=== PATIENT | male | born 1960 | race Caucasian/White ===

== ENCOUNTER 2023-02-03 09:04 | Inpatient (IN) ==
[2023-02-03] MEDS ORDERED: Albuterol/Ipratropium NEB.SOL (2.5/0.5 MG) 3 ML NEB.SOLN INH ONE (09:47)
[2023-02-03 10:36] LABS: INR 1.12 (0.88-1.18)
[2023-02-03 10:37] LABS: ABS Eosinophils 0.1 10^3/uL (0.0-0.5); ABS Monocytes 0.4 10^3/uL (0.0-1.1); ABS Neutrophils 4.8 10^3/uL (1.5-7.6); ABS Nucleated RBC 0.01 10^3/ul; Hematocrit 49.7 % (38-53); Hemoglobin 16.9 g/dL (13.2-16.3); Lymphocyte % 15.9 %; Mean Corpuscular Volume 96.9 fL (80-97); Nucleated Red Blood Cells % 0.2 /100 WBC (0.0-0.4); Platelet Count 444 10^3/uL (150-450); Red Blood Count 5.13 10^6/uL (4.06-5.63); Red Cell Distribution Width 13.3 % (12-17); White Blood Count 6.4 10^3/uL (3.6-10.2)
[2023-02-03 10:43] LABS: Albumin 3.9 g/dL (3.2-5.2); Albumin/Globulin Ratio 0.9 (1-3); C Reactive Protein 2.9 mg/L (<8.01); Calcium 9.6 mg/dL (8.6-10.3); Creatinine, Serum 0.56 mg/dL (0.67-1.17); Globulin 4.5 g/dL (2-4); Magnesium 1.7 mg/dL (1.9-2.7); Phosphorus 3.9 mg/dL (2.5-5.0); Potassium 3.7 mmol/L (3.5-5.0); Total Bilirubin 0.6 mg/dL (0.2-1.0); Total Protein 8.4 g/dL (6.4-8.9); eGFR CKD-EPI 110.1 (>60)
[2023-02-03] MEDS ORDERED: NS 0.9% 1000 ml BAG 1,000 ML IV ONE (11:02)
[2023-02-03] MEDS ORDERED: Magnesium Sulfate 2 gm BAG 2 GM/50 ML BAG IVPB ONE (11:06)
[2023-02-03] MEDS ORDERED: cefTRIAXone 1 gm/50 mL D5W 1 GM/50 ML BAG IV ONE (11:40)
[2023-02-03] MEDS ORDERED: Azithromycin 500 mg/250 ml NS 500 MG/250 ML BAG IVPB ONE (11:41)
[2023-02-03] MEDS ORDERED: methylPREDNISolone SOD SUCC 125 mg 2 ML VIAL IV ONE (11:42)
[2023-02-03 11:51] LABS: High Sensitivity Troponin 1 Hr 3 pg/mL (<20)
[2023-02-03] MEDS ORDERED: Ondansetron 4 mg VIAL 2 MG/ML 2 ml VIAL IV ONE (12:52)
[2023-02-03] MEDS ORDERED: Acetaminophen IV 1 GM/100ML 1,000 MG/100 ML BAG IV ONE (13:31)
[2023-02-03] MEDS ORDERED: Iohexol 350 (CONTRAST) 500 ML MDV IV ONE (13:47)
[2023-02-03 15:10] LABS: Urine Appearance Clear; Urine Bilirubin Negative (Negative); Urine Blood Negative (Negative); Urine Color Yellow; Urine Glucose Negative (Negative); Urine Ketones Negative (Negative); Urine Nitrite Negative (Negative); Urine Protein Negative (Negative); Urine Specific Gravity 1.012 (1.002-1.030); Urine Urobilinogen Negative (Negative)
[2023-02-03] MEDS ORDERED: Enoxaparin 60 MG/0.6 ML SYR SUBCUT ONE (16:30)
[2023-02-03] MEDS ORDERED: Albuterol/Ipratropium NEB.SOL (2.5/0.5 MG) 3 ML NEB.SOLN INH PRN (16:36)
[2023-02-03] MEDS ORDERED: Permethrin 5% CREAM 1 TUBE TOPICAL ONE (17:14)
[2023-02-03] MEDS ORDERED: Lorazepam PYXIS KEY PRN (17:16)
[2023-02-03] MEDS ORDERED: LORazepam 2 mg VIAL 1 ml IV PUSH PRN (17:16)
[2023-02-04] MEDS ORDERED: Iohexol 350 (CONTRAST) 500 ML MDV IV ONE (00:09)
[2023-02-04] MEDS ORDERED: Heparin DRIP 25,000 UNITS BAG 25,000 UNITS/500 ML BAG IV SCH (10:15)
[2023-02-04 10:39] LABS: ABS Basophils 0.1 10^3/uL (0.0-0.1); ABS Lymphocytes 1.3 10^3/uL (1.0-4.8); ABS Monocytes 0.8 10^3/uL (0.0-1.1); ABS Neutrophils 7.7 10^3/uL (1.5-7.6); ABS Nucleated RBC 0.01 10^3/ul; Eosinophil % 0.4 %; Hematocrit 44.7 % (38-53); Hemoglobin 15.2 g/dL (13.2-16.3); Lymphocyte % 12.7 %; Mean Corpuscular Hemoglobin 32.9 pg (27-33); Mean Corpuscular Hgb Conc 34.1 g/dL (31-36); Mean Corpuscular Volume 96.5 fL (80-97); Mean Platelet Volume 7.8 fL (7.5-11.2); Nucleated Red Blood Cells % 0.1 /100 WBC (0.0-0.4); Platelet Count 436 10^3/uL (150-450); Red Blood Count 4.63 10^6/uL (4.06-5.63); Red Cell Distribution Width 13.3 % (12-17); White Blood Count 9.9 10^3/uL (3.6-10.2)
[2023-02-04] MEDS ORDERED: Heparin 5000 UNITS/ML 1 mL VIAL IV SCH (11:00)
[2023-02-04 11:06] LABS: Creatinine, Serum 0.48 mg/dL (0.67-1.17); eGFR CKD-EPI 115.3 (>60)
[2023-02-04] MEDS: Azithromycin 500 mg/250 ml NS 500 MG/250 ML BAG IVPB SCH (12:13)
[2023-02-04] MEDS: cefTRIAXone 1 gm/50 mL D5W 1 GM/50 ML BAG IV SCH (12:14)
[2023-02-04] MEDS ORDERED: Prochlorperazine 5 mg/ml 2 ml VIAL (10 mg) IV PRN (12:40)
[2023-02-04] MEDS: Enoxaparin 60 MG/0.6 ML SYR SUBCUT SCH (13:19)
[2023-02-04] MEDS ORDERED: Acetylcysteine INHALATION SOL 200 MG/ML NEB.SOLN 10 ML INH PRN (15:29)
[2023-02-04] MEDS: methylPREDNISolone SOD SUCC 40 mg/ml 1 ml VIAL IV SCH (16:17)
[2023-02-04] MEDS ORDERED: Polyethylene Glycol 3350 17 GM PACKET PO PRN (17:07)
[2023-02-04] MEDS ORDERED: Acetylcysteine INH SOL (RT) 200 MG/ML 4 ML VIAL INH PRN (18:32)
[2023-02-04] MEDS: Albuterol/Ipratropium NEB.SOL (2.5/0.5 MG) 3 ML NEB.SOLN INH SCH (19:58)
[2023-02-04] MEDS: Clotrimazole 1% CREAM 30 gm TOPICAL SCH (22:02)
[2023-02-05] MEDS: Enoxaparin 60 MG/0.6 ML SYR SUBCUT SCH ×2 (00:46→16:11)
[2023-02-05] MEDS: methylPREDNISolone SOD SUCC 40 mg/ml 1 ml VIAL IV SCH ×3 (00:46→16:11)
[2023-02-05 04:22] LABS: ABS Lymphocytes 0.4 10^3/uL (1.0-4.8); ABS Monocytes 0.1 10^3/uL (0.0-1.1); ABS Neutrophils 6.2 10^3/uL (1.5-7.6); ABS Nucleated RBC 0.01 10^3/ul; Eosinophil % 0.1 %; Hematocrit 42.6 % (38-53); Hemoglobin 14.8 g/dL (13.2-16.3); Lymphocyte % 6.1 %; Mean Corpuscular Hemoglobin 33.4 pg (27-33); Mean Corpuscular Hgb Conc 34.8 g/dL (31-36); Mean Corpuscular Volume 96.1 fL (80-97); Mean Platelet Volume 7.9 fL (7.5-11.2); Nucleated Red Blood Cells % 0.1 /100 WBC (0.0-0.4); Platelet Count 361 10^3/uL (150-450); Red Blood Count 4.44 10^6/uL (4.06-5.63); Red Cell Distribution Width 13.2 % (12-17); White Blood Count 6.7 10^3/uL (3.6-10.2)
[2023-02-05] MEDS: Albuterol/Ipratropium NEB.SOL (2.5/0.5 MG) 3 ML NEB.SOLN INH SCH ×3 (07:02→15:22)
[2023-02-05] MEDS: Clotrimazole 1% CREAM 30 gm TOPICAL SCH (07:50)
[2023-02-05] MEDS: cefTRIAXone 1 gm/50 mL D5W 1 GM/50 ML BAG IV SCH (12:04)
[2023-02-05] MEDS: Azithromycin 500 mg/250 ml NS 500 MG/250 ML BAG IVPB SCH (12:05)
[2023-02-05 15:50] VITALS: BP 141/77
== END 2023-02-05 17:55 | disposition home or self-care (01) | DRG 190 ==
LOC: ED 09:04 → EDHOLD 15:56 → SUATTDRO 15:56 → MEDTELE 17:10
PROVIDERS: ADMIT Pediatrics; ATTEND Internal Medicine

== ENCOUNTER 2023-03-11 05:39 | Inpatient (IN) ==
[2023-03-11 07:34] LABS: Hemoglobin 10.8 g/dL (13.2-16.3); Mean Corpuscular Hemoglobin 32.5 pg (27-33); Mean Corpuscular Hgb Conc 34.8 g/dL (31-36); Mean Corpuscular Volume 93.3 fL (80-97); Mean Platelet Volume 7.6 fL (7.5-11.2); Platelet Count 157 10^3/uL (150-450); Red Blood Count 3.32 10^6/uL (4.06-5.63); White Blood Count 1.4 10^3/uL (3.6-10.2)
[2023-03-11 07:48] LABS: Albumin 3.8 g/dL (3.2-5.2); Anion Gap 10 mmol/L (2-16); CO2 Carbon Dioxide 33 mmol/L (22-32); Calcium 9.3 mg/dL (8.6-10.3); Chloride 88 mmol/L (101-111); Potassium 3.3 mmol/L (3.5-5.0); Sodium 131 mmol/L (135-145)
[2023-03-11 07:54] LABS: ALT 33 U/L (7-52); AST 22 U/L (13-39); Alkaline Phosphatase 103 U/L (35-149); Blood Urea Nitrogen 15 mg/dL (6-24); Creatinine, Serum 0.48 mg/dL (0.67-1.17); Globulin 3.8 g/dL (2-4); Glucose 93 mg/dL (70-100); Total Protein 7.6 g/dL (6.4-8.9); eGFR CKD-EPI 115.3 (>60)
[2023-03-11 08:09] LABS: ABS Lymphocytes 0.8 10^3/uL (1.0-4.8); ABS Monocytes 0.3 10^3/uL (0.0-1.1); ABS Nucleated RBC 0.01 10^3/ul; Eosinophil % 0.2 %; Nucleated Red Blood Cells % 0.4 /100 WBC (0.0-0.4)
[2023-03-11] MEDS ORDERED: levETIRAcetam 1000MG IVPREMIX 1,000 MG/100 ML BAG IVPB ONE (08:15)
[2023-03-11 08:22] LABS: Alcohol, S < 13 mg/dL (<13)
[2023-03-11] MEDS ORDERED: NS 0.9% 1000 ml BAG 1,000 ML IV ONE (08:23)
[2023-03-11] MEDS ORDERED: Dexamethasone IV 4 MG/ML VIAL 1 ml VIAL IV SLOW PU ONE (08:27)
[2023-03-11 09:08] LABS: ABS Neutrophils 0.3 10^3/uL (1.5-7.6)
[2023-03-11] MEDS ORDERED: Gadoteridol (CONTRAST) 279.3 MG/ML 10 ML IV ONE (13:57)
[2023-03-11] MEDS ORDERED: Albuterol HFA INHALER 8 gm MDI INH PRN (14:04)
[2023-03-11] MEDS ORDERED: Clotrimazole 1% CREAM 45 GM TOPICAL PRN (14:04)
[2023-03-11 14:18] LABS: Urine Appearance Cloudy; Urine Bilirubin Negative (Negative); Urine Blood Negative (Negative); Urine Color Yellow; Urine Glucose Negative (Negative); Urine Ketones 2+ (Negative); Urine Nitrite Negative (Negative); Urine Protein 1+(30 mg/dL) (Negative); Urine Specific Gravity 1.018 (1.002-1.030); Urine Urobilinogen Negative (Negative)
[2023-03-11 14:28] LABS: Urine Bacteria Absent (Absent); Urine Red Blood Cell Trace(0-2/hpf) (Absent); Urine White Blood Cell Trace(0-5/hpf) (Absent)
[2023-03-11] MEDS ORDERED: Dexamethasone IV 4 MG/ML VIAL 1 ml VIAL IV SLOW PU SCH (16:00)
[2023-03-11] MEDS: Dexamethasone IV 4 MG/ML VIAL 1 ml VIAL IV SLOW PU SCH (16:41)
[2023-03-11] MEDS ORDERED: ALBUTEROL SULFATE 1.25 MG/3 ML INH SCH (17:00)
[2023-03-11] MEDS: Folic Acid IV 1 MG in NS 0.9% 50 ML 50 ML IV SCH (18:16)
[2023-03-11] MEDS: levETIRAcetam IV 750 MG in NS 0.9% 100 ml BAG 100 ML IVPB SCH (19:55)
[2023-03-11] MEDS: Albuterol HFA INHALER 8 gm MDI INH SCH (20:01)
[2023-03-11 20:02] LABS: Urine Benzodiazepine Screen None Detected (None Detect); Urine Cannabinoids Screen Presumptive Positive (None Detect); Urine Opiates Screen None Detected (None Detect)
[2023-03-11 20:51] LABS: Urine Buprenorphine Screen None Detected (None Detect); Urine Fentanyl Screen None Detected (None Detect); Urine Hydrocodone Screen None Detected (None Detect)
[2023-03-11] MEDS ORDERED: Albuterol 2.5mg/3 ml (0.083%) NEB.SOLN INH SCH (21:00)
[2023-03-11] MEDS ORDERED: Haloperidol 5 mg/ml SDV IV/IM 5 MG/ML AMP IV SLOW PU ONE (22:39)
[2023-03-11] MEDS ORDERED: Lorazepam PYXIS KEY PRN (23:22)
[2023-03-11] MEDS ORDERED: LORazepam 2 mg VIAL 1 ml IV PUSH ONE (23:23)
[2023-03-12] MEDS: Dexamethasone IV 4 MG/ML VIAL 1 ml VIAL IV SLOW PU SCH ×3 (02:05→17:30)
[2023-03-12] MEDS ORDERED: LORazepam 2 mg VIAL 1 ml IV PUSH ONE (03:34)
[2023-03-12] MEDS ORDERED: Lorazepam PYXIS KEY PRN (03:34)
[2023-03-12] MEDS: Albuterol HFA INHALER 8 gm MDI INH SCH ×2 (08:59→11:49)
[2023-03-12 09:19] LABS: Hematocrit 32.8 % (38-53); Hemoglobin 11.3 g/dL (13.2-16.3); Mean Corpuscular Hemoglobin 32.5 pg (27-33); Mean Corpuscular Hgb Conc 34.5 g/dL (31-36); Mean Corpuscular Volume 94.1 fL (80-97); Mean Platelet Volume 7.9 fL (7.5-11.2); Platelet Count 161 10^3/uL (150-450); Red Blood Count 3.48 10^6/uL (4.06-5.63); Red Cell Distribution Width 13.1 % (12-17)
[2023-03-12 09:22] LABS: ABS Lymphocytes 0.4 10^3/uL (1.0-4.8); ABS Monocytes 0.3 10^3/uL (0.0-1.1); ABS Neutrophils 0.4 10^3/uL (1.5-7.6); Nucleated Red Blood Cells % 0.3 /100 WBC (0.0-0.4)
[2023-03-12] MEDS: Olodaterol Inhaler MDI INH SCH (09:32)
[2023-03-12 09:35] LABS: Albumin 3.5 g/dL (3.2-5.2); Albumin/Globulin Ratio 0.9 (1-3); Calcium 9.1 mg/dL (8.6-10.3); Creatinine, Serum 0.41 mg/dL (0.67-1.17); Globulin 3.7 g/dL (2-4); Magnesium 1.5 mg/dL (1.9-2.7); Potassium 3.4 mmol/L (3.5-5.0); Total Bilirubin 0.3 mg/dL (0.2-1.0); Total Protein 7.2 g/dL (6.4-8.9); eGFR CKD-EPI 120.9 (>60)
[2023-03-12] MEDS: Folic Acid IV 1 MG in NS 0.9% 50 ML 50 ML IV SCH (09:35)
[2023-03-12] MEDS: levETIRAcetam IV 750 MG in NS 0.9% 100 ml BAG 100 ML IVPB SCH ×2 (09:35→20:44)
[2023-03-12] MEDS ORDERED: Potassium Chloride LIQUID 20 MEQ/15 ML LIQUID PO ONE (10:06)
[2023-03-12] MEDS ORDERED: Magnesium Sulfate 2 gm BAG 2 GM/50 ML BAG IVPB ONE (10:12)
[2023-03-12] MEDS ORDERED: Albuterol HFA INHALER 8 gm MDI INH PRN (12:03)
[2023-03-12] MEDS: Calcium Carb (TUMS) 500 mg CHEW TAB PO PRN (19:31)
[2023-03-12] MEDS: LORazepam 2 mg VIAL 1 ml IV PUSH SCH ×2 (20:11→22:10)
[2023-03-13] MEDS: LORazepam 2 mg VIAL 1 ml IV PUSH SCH ×7 (00:16→20:21)
[2023-03-13] MEDS: Dexamethasone IV 4 MG/ML VIAL 1 ml VIAL IV SLOW PU SCH ×3 (00:17→16:47)
[2023-03-13 06:20] LABS: Hematocrit 33.6 % (38-53); Hemoglobin 11.6 g/dL (13.2-16.3); Mean Corpuscular Hemoglobin 32.5 pg (27-33); Mean Corpuscular Hgb Conc 34.5 g/dL (31-36); Mean Corpuscular Volume 94.3 fL (80-97); Mean Platelet Volume 7.8 fL (7.5-11.2); Platelet Count 167 10^3/uL (150-450); Red Blood Count 3.56 10^6/uL (4.06-5.63); Red Cell Distribution Width 12.8 % (12-17)
[2023-03-13 06:46] LABS: ABS Lymphocytes 0.4 10^3/uL (1.0-4.8); ABS Monocytes 0.4 10^3/uL (0.0-1.1); ABS Neutrophils 0.2 10^3/uL (1.5-7.6); Eosinophil % 0.2 %; Lymphocyte % 38.4 %; Nucleated Red Blood Cells % 0.4 /100 WBC (0.0-0.4)
[2023-03-13 07:12] LABS: Calcium 9.1 mg/dL (8.6-10.3); Creatinine, Serum 0.34 mg/dL (0.67-1.17); Magnesium 1.6 mg/dL (1.9-2.7); Potassium 3.3 mmol/L (3.5-5.0)
[2023-03-13] MEDS ORDERED: Magnesium Sulfate IV 3 GM in NS 0.9% 100 ml BAG 100 ML IVPB ONE (08:17)
[2023-03-13] MEDS: levETIRAcetam IV 750 MG in NS 0.9% 100 ml BAG 100 ML IVPB SCH ×2 (08:47→20:27)
[2023-03-13] MEDS: Folic Acid IV 1 MG in NS 0.9% 50 ML 50 ML IV SCH (08:48)
[2023-03-13] MEDS: Olodaterol Inhaler MDI INH SCH (08:56)
[2023-03-13] MEDS: Thiamine 100 MG/ML 2 ml VIAL 500 MG in NS 0.9% 250 ml 250 ML IV SCH ×2 (15:36→16:47)
[2023-03-13] MEDS: Potassium Chlor 20 meq TAB.ER PO SCH ×2 (15:37→15:39)
[2023-03-13] MEDS ORDERED: Acetylcysteine INHALATION SOL 200 MG/ML NEB.SOLN 10 ML INH ONE (20:58)
[2023-03-13] MEDS ORDERED: Albuterol 2.5mg/3 ml (0.083%) NEB.SOLN INH ONE (22:00)
[2023-03-13] MEDS ORDERED: Lactated Ringers 1000 ml BAG 1,000 ML IV ONE (22:55)
[2023-03-13] MEDS ORDERED: Iohexol 350 (CONTRAST) 500 ML MDV IV ONE (23:00)
[2023-03-13 23:21] LABS: PCO2 Arterial 40 mmHg (35-45); PO2 Arterial 90 mmHg (80-100)
[2023-03-14] MEDS: Dexamethasone IV 4 MG/ML VIAL 1 ml VIAL IV SLOW PU SCH ×3 (00:51→21:41)
[2023-03-14] MEDS: Thiamine 100 MG/ML 2 ml VIAL 500 MG in NS 0.9% 250 ml 250 ML IV SCH ×3 (02:18→18:17)
[2023-03-14 05:52] LABS: Hematocrit 30.4 % (38-53); Hemoglobin 10.6 g/dL (13.2-16.3); Mean Corpuscular Hemoglobin 32.7 pg (27-33); Mean Corpuscular Volume 93.4 fL (80-97); Mean Platelet Volume 8.1 fL (7.5-11.2); Platelet Count 166 10^3/uL (150-450); Red Blood Count 3.25 10^6/uL (4.06-5.63); Red Cell Distribution Width 13.2 % (12-17); White Blood Count 0.9 10^3/uL (3.6-10.2)
[2023-03-14 06:04] LABS: Calcium 8.6 mg/dL (8.6-10.3); Creatinine, Serum 0.35 mg/dL (0.67-1.17); Magnesium 1.6 mg/dL (1.9-2.7); Phosphorus 3.4 mg/dL (2.5-5.0); Potassium 3.2 mmol/L (3.5-5.0); eGFR CKD-EPI 126.9 (>60)
[2023-03-14] MEDS ORDERED: Magnesium Sulfate IV 3 GM in NS 0.9% 100 ml BAG 100 ML IVPB ONE (07:17)
[2023-03-14] MEDS: Olodaterol Inhaler MDI INH SCH (07:24)
[2023-03-14 08:37] LABS: ABS Lymphocytes 0.2 10^3/uL (1.0-4.8); ABS Monocytes 0.4 10^3/uL (0.0-1.1); ABS Neutrophils 0.3 10^3/uL (1.5-7.6); Lymphocyte % 25.7 %; Nucleated Red Blood Cells % 0.4 /100 WBC (0.0-0.4); Polychromasia 1+
[2023-03-14 09:14] LABS: C Reactive Protein 154.49 mg/L (<8.01)
[2023-03-14] MEDS: levETIRAcetam IV 750 MG in NS 0.9% 100 ml BAG 100 ML IVPB SCH ×2 (09:27→20:16)
[2023-03-14] MEDS: Folic Acid IV 1 MG in NS 0.9% 50 ML 50 ML IV SCH (09:38)
[2023-03-14] MEDS: KCL 20 MEQ/100 ML IVPREMIX 20 MEQ/100 ML BAG IV SCH ×3 (11:07→22:02)
[2023-03-14] MEDS: Albuterol 2.5mg/3 ml (0.083%) NEB.SOLN INH PRN ×3 (11:39→19:04)
[2023-03-14] MEDS: Acetylcysteine INHALATION SOL 200 MG/ML NEB.SOLN 10 ML INH SCH ×3 (11:40→19:04)
[2023-03-14] MEDS: LORazepam 2 mg VIAL 1 ml IV PUSH SCH ×2 (12:04→23:30)
[2023-03-14] MEDS ORDERED: Acetylcysteine INHALATION SOL 200 MG/ML NEB.SOLN 10 ML INH PRN (19:36)
[2023-03-14] MEDS ORDERED: KCL 20 MEQ/100 ML IVPREMIX 20 MEQ/100 ML BAG IV SCH (22:00)
[2023-03-15] MEDS: Thiamine 100 MG/ML 2 ml VIAL 500 MG in NS 0.9% 250 ml 250 ML IV SCH (02:13)
[2023-03-15] MEDS: Dexamethasone IV 4 MG/ML VIAL 1 ml VIAL IV SLOW PU SCH ×3 (06:07→21:52)
[2023-03-15 06:41] LABS: ABS Lymphocytes 0.6 10^3/uL (1.0-4.8); ABS Monocytes 0.6 10^3/uL (0.0-1.1); ABS Neutrophils 2.2 10^3/uL (1.5-7.6); Eosinophil % 0.1 %; Hematocrit 29.3 % (38-53); Hemoglobin 10.3 g/dL (13.2-16.3); Mean Corpuscular Hemoglobin 33.1 pg (27-33); Mean Corpuscular Hgb Conc 35.2 g/dL (31-36); Mean Corpuscular Volume 94.1 fL (80-97); Mean Platelet Volume 7.7 fL (7.5-11.2); Nucleated Red Blood Cells % 0.1 /100 WBC (0.0-0.4); Platelet Count 195 10^3/uL (150-450); Red Blood Count 3.11 10^6/uL (4.06-5.63); Red Cell Distribution Width 13.4 % (12-17); White Blood Count 3.4 10^3/uL (3.6-10.2)
[2023-03-15 07:27] LABS: Calcium 8.4 mg/dL (8.6-10.3); Creatinine, Serum 0.37 mg/dL (0.67-1.17); Magnesium 1.6 mg/dL (1.9-2.7); Phosphorus 2.8 mg/dL (2.5-5.0); Potassium 3.7 mmol/L (3.5-5.0); eGFR CKD-EPI 124.7 (>60)
[2023-03-15] MEDS: Olodaterol Inhaler MDI INH SCH (07:56)
[2023-03-15] MEDS ORDERED: Magnesium Sulfate 2 gm BAG 2 GM/50 ML BAG IVPB ONE (08:33)
[2023-03-15] MEDS: levETIRAcetam IV 750 MG in NS 0.9% 100 ml BAG 100 ML IVPB SCH ×2 (09:32→20:04)
[2023-03-15] MEDS: Folic Acid IV 1 MG in NS 0.9% 50 ML 50 ML IV SCH (10:24)
[2023-03-15] MEDS: Calcium Carb (TUMS) 500 mg CHEW TAB PO PRN (17:14)
[2023-03-16] MEDS: Dexamethasone IV 4 MG/ML VIAL 1 ml VIAL IV SLOW PU SCH ×3 (05:14→22:06)
[2023-03-16 06:04] LABS: ABS Lymphocytes 0.5 10^3/uL (1.0-4.8); ABS Monocytes 0.5 10^3/uL (0.0-1.1); ABS Neutrophils 2.1 10^3/uL (1.5-7.6); Hematocrit 31.6 % (38-53); Lymphocyte % 15.2 %; Mean Corpuscular Hemoglobin 32.8 pg (27-33); Mean Corpuscular Volume 93.8 fL (80-97); Mean Platelet Volume 7.9 fL (7.5-11.2); Nucleated Red Blood Cells % 0.1 /100 WBC (0.0-0.4); Platelet Count 248 10^3/uL (150-450); Red Blood Count 3.37 10^6/uL (4.06-5.63); Red Cell Distribution Width 13.6 % (12-17); White Blood Count 3.2 10^3/uL (3.6-10.2)
[2023-03-16 06:14] LABS: Calcium 9.2 mg/dL (8.6-10.3); Creatinine, Serum 0.39 mg/dL (0.67-1.17); Potassium 3.6 mmol/L (3.5-5.0); eGFR CKD-EPI 122.8 (>60)
[2023-03-16] MEDS: Olodaterol Inhaler MDI INH SCH (07:25)
[2023-03-16] MEDS: Nicotine PATCH 21 MG/24 HR PATCH TRANSDERM SCH (08:39)
[2023-03-16] MEDS: levETIRAcetam IV 750 MG in NS 0.9% 100 ml BAG 100 ML IVPB SCH ×2 (08:42→22:06)
[2023-03-16] MEDS: LORazepam 2 mg VIAL 1 ml IV PUSH SCH ×2 (09:34→22:19)
[2023-03-16] MEDS ORDERED: Lorazepam PYXIS KEY PRN (10:28)
[2023-03-16] MEDS ORDERED: LORazepam 2 mg VIAL 1 ml IV PUSH ONE (10:28)
[2023-03-16] MEDS: Folic Acid IV 1 MG in NS 0.9% 50 ML 50 ML IV SCH (14:29)
[2023-03-17] MEDS: Dexamethasone IV 4 MG/ML VIAL 1 ml VIAL IV SLOW PU SCH ×3 (05:38→21:07)
[2023-03-17 05:57] LABS: ABS Lymphocytes 0.7 10^3/uL (1.0-4.8); ABS Monocytes 0.6 10^3/uL (0.0-1.1); ABS Neutrophils 3.1 10^3/uL (1.5-7.6); Hematocrit 32.2 % (38-53); Hemoglobin 11.3 g/dL (13.2-16.3); Lymphocyte % 15.3 %; Mean Corpuscular Hemoglobin 32.9 pg (27-33); Mean Corpuscular Hgb Conc 35.1 g/dL (31-36); Mean Corpuscular Volume 93.8 fL (80-97); Nucleated Red Blood Cells % 0.1 /100 WBC (0.0-0.4); Platelet Count 285 10^3/uL (150-450); Red Blood Count 3.43 10^6/uL (4.06-5.63); Red Cell Distribution Width 13.6 % (12-17); White Blood Count 4.4 10^3/uL (3.6-10.2)
[2023-03-17 06:12] LABS: Albumin 3.2 g/dL (3.2-5.2); Calcium 8.8 mg/dL (8.6-10.3); Creatinine, Serum 0.42 mg/dL (0.67-1.17); Globulin 3.3 g/dL (2-4); Magnesium 1.5 mg/dL (1.9-2.7); Potassium 3.6 mmol/L (3.5-5.0); Total Bilirubin 0.3 mg/dL (0.2-1.0); Total Protein 6.5 g/dL (6.4-8.9); eGFR CKD-EPI 120.1 (>60)
[2023-03-17] MEDS: Nicotine PATCH 21 MG/24 HR PATCH TRANSDERM SCH (08:10)
[2023-03-17] MEDS: levETIRAcetam IV 750 MG in NS 0.9% 100 ml BAG 100 ML IVPB SCH ×2 (08:12→20:23)
[2023-03-17] MEDS: Olodaterol Inhaler MDI INH SCH (08:36)
[2023-03-17] MEDS: Folic Acid IV 1 MG in NS 0.9% 50 ML 50 ML IV SCH (09:47)
[2023-03-17] MEDS ORDERED: Lorazepam PYXIS KEY PRN (15:14)
[2023-03-17] MEDS: LORazepam 2 mg VIAL 1 ml IV PUSH PRN (15:59)
[2023-03-18] MEDS: Dexamethasone IV 4 MG/ML VIAL 1 ml VIAL IV SLOW PU SCH ×3 (05:43→21:11)
[2023-03-18] MEDS: Olodaterol Inhaler MDI INH SCH (07:33)
[2023-03-18] MEDS ORDERED: Magnesium Sulfate 2 gm BAG 2 GM/50 ML BAG IVPB ONE (07:56)
[2023-03-18 09:04] LABS: ABS Lymphocytes 0.6 10^3/uL (1.0-4.8); ABS Monocytes 0.7 10^3/uL (0.0-1.1); ABS Neutrophils 4.8 10^3/uL (1.5-7.6); Hematocrit 36.5 % (38-53); Hemoglobin 12.6 g/dL (13.2-16.3); Lymphocyte % 10.3 %; Mean Corpuscular Hemoglobin 32.4 pg (27-33); Mean Corpuscular Hgb Conc 34.4 g/dL (31-36); Mean Corpuscular Volume 94.1 fL (80-97); Mean Platelet Volume 7.7 fL (7.5-11.2); Platelet Count 360 10^3/uL (150-450); Red Blood Count 3.88 10^6/uL (4.06-5.63); Red Cell Distribution Width 13.4 % (12-17); White Blood Count 6.2 10^3/uL (3.6-10.2)
[2023-03-18 09:31] LABS: Potassium 3.7 mmol/L (3.5-5.0)
[2023-03-18 09:32] LABS: Calcium 9.2 mg/dL (8.6-10.3); Creatinine, Serum 0.49 mg/dL (0.67-1.17); eGFR CKD-EPI 114.6 (>60)
[2023-03-18] MEDS: Nicotine PATCH 21 MG/24 HR PATCH TRANSDERM SCH (09:42)
[2023-03-18] MEDS: levETIRAcetam IV 750 MG in NS 0.9% 100 ml BAG 100 ML IVPB SCH ×2 (09:42→19:49)
[2023-03-18] MEDS: Folic Acid IV 1 MG in NS 0.9% 50 ML 50 ML IV SCH (10:27)
[2023-03-18] MEDS: LORazepam 2 mg VIAL 1 ml IV PUSH PRN (14:15)
[2023-03-18] MEDS: OLANZapine 5 mg TAB *ODT PO SCH ×2 (14:35→21:11)
[2023-03-18] MEDS: Calcium Carb (TUMS) 500 mg CHEW TAB PO PRN ×2 (16:34→20:12)
[2023-03-19] MEDS: Dexamethasone IV 4 MG/ML VIAL 1 ml VIAL IV SLOW PU SCH ×3 (05:50→23:23)
[2023-03-19 06:16] LABS: ABS Lymphocytes 0.9 10^3/uL (1.0-4.8); ABS Monocytes 0.8 10^3/uL (0.0-1.1); ABS Neutrophils 4.9 10^3/uL (1.5-7.6); Hematocrit 31.3 % (38-53); Lymphocyte % 13.4 %; Mean Corpuscular Hgb Conc 35.2 g/dL (31-36); Mean Corpuscular Volume 93.7 fL (80-97); Mean Platelet Volume 7.9 fL (7.5-11.2); Platelet Count 313 10^3/uL (150-450); Red Blood Count 3.34 10^6/uL (4.06-5.63); Red Cell Distribution Width 13.9 % (12-17); White Blood Count 6.7 10^3/uL (3.6-10.2)
[2023-03-19 06:26] LABS: Calcium 9.5 mg/dL (8.6-10.3); Creatinine, Serum 0.46 mg/dL (0.67-1.17); eGFR CKD-EPI 116.8 (>60)
[2023-03-19] MEDS: Olodaterol Inhaler MDI INH SCH (07:48)
[2023-03-19] MEDS: levETIRAcetam IV 750 MG in NS 0.9% 100 ml BAG 100 ML IVPB SCH ×2 (09:11→19:57)
[2023-03-19] MEDS: Nicotine PATCH 21 MG/24 HR PATCH TRANSDERM SCH (09:13)
[2023-03-19] MEDS: OLANZapine 5 mg TAB *ODT PO SCH ×2 (09:14→19:51)
[2023-03-19] MEDS: Folic Acid IV 1 MG in NS 0.9% 50 ML 50 ML IV SCH (10:47)
[2023-03-19] MEDS ORDERED: Magnesium Hydroxide LIQ 30 ML UDC PO PRN (18:17)
[2023-03-19] MEDS: Senna TAB 8.6 mg TAB PO PRN (19:50)
[2023-03-19] MEDS: LORazepam 2 mg VIAL 1 ml IV PUSH PRN (19:57)
[2023-03-20] MEDS: Dexamethasone IV 4 MG/ML VIAL 1 ml VIAL IV SLOW PU SCH ×3 (05:36→22:54)
[2023-03-20 06:22] LABS: ABS Lymphocytes 0.8 10^3/uL (1.0-4.8); ABS Monocytes 0.6 10^3/uL (0.0-1.1); ABS Neutrophils 6.1 10^3/uL (1.5-7.6); Eosinophil % 0.1 %; Hematocrit 36.1 % (38-53); Hemoglobin 12.4 g/dL (13.2-16.3); Lymphocyte % 10.2 %; Mean Corpuscular Hemoglobin 32.4 pg (27-33); Mean Corpuscular Hgb Conc 34.4 g/dL (31-36); Mean Corpuscular Volume 94.1 fL (80-97); Mean Platelet Volume 7.7 fL (7.5-11.2); Platelet Count 351 10^3/uL (150-450); Red Blood Count 3.83 10^6/uL (4.06-5.63); Red Cell Distribution Width 14.1 % (12-17); White Blood Count 7.5 10^3/uL (3.6-10.2)
[2023-03-20 06:54] LABS: Calcium 9.5 mg/dL (8.6-10.3); Creatinine, Serum 0.38 mg/dL (0.67-1.17); Potassium 4.2 mmol/L (3.5-5.0); eGFR CKD-EPI 123.7 (>60)
[2023-03-20] MEDS: Olodaterol Inhaler MDI INH SCH (08:02)
[2023-03-20] MEDS: OLANZapine 5 mg TAB *ODT PO SCH ×2 (10:14→22:54)
[2023-03-20] MEDS: Nicotine PATCH 21 MG/24 HR PATCH TRANSDERM SCH (10:14)
[2023-03-20] MEDS: levETIRAcetam IV 750 MG in NS 0.9% 100 ml BAG 100 ML IVPB SCH ×2 (10:14→22:54)
[2023-03-20] MEDS: Folic Acid IV 1 MG in NS 0.9% 50 ML 50 ML IV SCH (11:09)
[2023-03-20] MEDS: LORazepam 2 mg VIAL 1 ml IV PUSH PRN (16:24)
[2023-03-20] MEDS ORDERED: LORazepam 2 mg VIAL 1 ml IV PUSH ONE (16:39)
[2023-03-20] MEDS ORDERED: Lorazepam PYXIS KEY PRN (16:39)
[2023-03-21] MEDS: LORazepam 2 mg VIAL 1 ml IV PUSH PRN (03:48)
[2023-03-21] MEDS: Dexamethasone IV 4 MG/ML VIAL 1 ml VIAL IV SLOW PU SCH ×3 (06:08→21:32)
[2023-03-21] MEDS: Olodaterol Inhaler MDI INH SCH (07:07)
[2023-03-21] MEDS: levETIRAcetam IV 750 MG in NS 0.9% 100 ml BAG 100 ML IVPB SCH ×2 (08:39→20:52)
[2023-03-21] MEDS: Nicotine PATCH 21 MG/24 HR PATCH TRANSDERM SCH (08:41)
[2023-03-21] MEDS: OLANZapine 5 mg TAB *ODT PO SCH ×2 (08:42→20:51)
[2023-03-21 08:58] LABS: ABS Lymphocytes 0.7 10^3/uL (1.0-4.8); ABS Monocytes 0.4 10^3/uL (0.0-1.1); ABS Neutrophils 9.4 10^3/uL (1.5-7.6); ABS Nucleated RBC 0.01 10^3/ul; Hematocrit 37.2 % (38-53); Hemoglobin 12.8 g/dL (13.2-16.3); Lymphocyte % 6.6 %; Mean Corpuscular Hemoglobin 32.5 pg (27-33); Mean Corpuscular Hgb Conc 34.3 g/dL (31-36); Mean Corpuscular Volume 94.8 fL (80-97); Mean Platelet Volume 7.5 fL (7.5-11.2); Nucleated Red Blood Cells % 0.1 /100 WBC (0.0-0.4); Platelet Count 404 10^3/uL (150-450); Red Blood Count 3.93 10^6/uL (4.06-5.63); Red Cell Distribution Width 14.1 % (12-17); White Blood Count 10.6 10^3/uL (3.6-10.2)
[2023-03-21 09:20] LABS: Calcium 9.6 mg/dL (8.6-10.3); Creatinine, Serum 0.48 mg/dL (0.67-1.17); Potassium 4.2 mmol/L (3.5-5.0); eGFR CKD-EPI 115.3 (>60)
[2023-03-21] MEDS: Folic Acid IV 1 MG in NS 0.9% 50 ML 50 ML IV SCH (09:50)
[2023-03-22] MEDS: Dexamethasone IV 4 MG/ML VIAL 1 ml VIAL IV SLOW PU SCH ×4 (06:15→20:40)
[2023-03-22] MEDS: Olodaterol Inhaler MDI INH SCH (07:20)
[2023-03-22] MEDS: levETIRAcetam IV 750 MG in NS 0.9% 100 ml BAG 100 ML IVPB SCH ×2 (10:37→20:40)
[2023-03-22] MEDS: OLANZapine 5 mg TAB *ODT PO SCH ×2 (10:37→20:40)
[2023-03-22] MEDS: Nicotine PATCH 21 MG/24 HR PATCH TRANSDERM SCH (10:37)
[2023-03-23] MEDS: Dexamethasone IV 4 MG/ML VIAL 1 ml VIAL IV SLOW PU SCH ×2 (05:40→13:48)
[2023-03-23] MEDS: Olodaterol Inhaler MDI INH SCH (07:25)
[2023-03-23] MEDS: levETIRAcetam IV 750 MG in NS 0.9% 100 ml BAG 100 ML IVPB SCH (07:32)
[2023-03-23] MEDS: Nicotine PATCH 21 MG/24 HR PATCH TRANSDERM SCH (07:37)
[2023-03-23] MEDS: OLANZapine 5 mg TAB *ODT PO SCH ×2 (07:41→20:39)
[2023-03-23] MEDS ORDERED: LORazepam 2 mg VIAL 1 ml IV PUSH PRN (10:05)
[2023-03-23] MEDS ORDERED: guaiFENesin 100 mg/5 ml LIQ unit dose cup PO PRN (10:18)
[2023-03-24] MEDS: OLANZapine 5 mg TAB *ODT PO SCH ×2 (08:33→20:07)
[2023-03-24] MEDS: Nicotine PATCH 21 MG/24 HR PATCH TRANSDERM SCH ×2 (08:33→08:55)
[2023-03-24] MEDS: Olodaterol Inhaler MDI INH SCH (08:48)
[2023-03-24] MEDS: Senna TAB 8.6 mg TAB PO PRN (20:08)
[2023-03-25] MEDS: Olodaterol Inhaler MDI INH SCH (08:33)
[2023-03-25] MEDS: Nicotine PATCH 21 MG/24 HR PATCH TRANSDERM SCH (08:51)
[2023-03-25] MEDS: OLANZapine 5 mg TAB *ODT PO SCH ×2 (08:51→21:49)
[2023-03-26] MEDS: Albuterol 2.5mg/3 ml (0.083%) NEB.SOLN INH PRN (00:40)
[2023-03-26] MEDS: Olodaterol Inhaler MDI INH SCH (07:50)
[2023-03-26] MEDS: Nicotine PATCH 21 MG/24 HR PATCH TRANSDERM SCH (08:19)
[2023-03-26] MEDS: OLANZapine 5 mg TAB *ODT PO SCH ×2 (08:45→21:22)
[2023-03-26 09:29] VITALS: BP 123/71
[2023-03-27] MEDS: Olodaterol Inhaler MDI INH SCH (08:15)
[2023-03-27] MEDS: Nicotine PATCH 21 MG/24 HR PATCH TRANSDERM SCH (08:17)
[2023-03-27] MEDS ORDERED: Morphine ORAL CONCENTRATE 5 MG/0.25 ML ORAL.SYRIN SL PRN ×2 (09:08→09:21)
[2023-03-27] MEDS: OLANZapine 5 mg TAB *ODT PO SCH ×2 (09:27→21:25)
[2023-03-28 04:50] LABS: Rapid COVID-19 Molecular Undetected (Undetected)
[2023-03-28] MEDS: Olodaterol Inhaler MDI INH SCH (07:14)
[2023-03-28] MEDS: OLANZapine 5 mg TAB *ODT PO SCH (08:35)
[2023-03-28] MEDS: Nicotine PATCH 21 MG/24 HR PATCH TRANSDERM SCH (08:55)
== END 2023-03-28 12:16 | DRG 64 ==
LOC: ED 05:39 → EDHOLD 12:37 → SUATTDRO 12:37 → MED 03-12 11:52
PROVIDERS: ADMIT Internal Medicine Critical Care Medicine; ATTEND Internal Medicine